=== PATIENT | male | born 1965 | race African-American/Black ===

== ENCOUNTER 2017-03-20 13:39 | Emergency (ER) | payer MEDICARE, MEDICAID ==
[~2017-03-20] VITALS: Ht 170.2 cm; Wt 90.7 kg
[~2017-03-20 13:39] MED LIST: CEPHALEXIN500 MG ORAL; IBUPROFEN800 MG ORAL; UNOBMED
[2017-03-20] MEDS ORDERED: IBUPROFEN600 MG ORAL ×3 (13:54→15:11)
[2017-03-20] MEDS ORDERED: ASPIR 8181 MG ORAL (13:54)
[2017-03-20] MEDS ORDERED: LISINOPRIL40 MG ORAL (13:54)
[2017-03-20] MEDS ORDERED: TUMS200 M1 PO (13:54)
[2017-03-20] MEDS ORDERED: AMLODIPINE BESY10 MG ORAL (13:54)
[2017-03-20] MEDS ORDERED: SIMVASTATIN5 MG ORAL (13:54)
[2017-03-20] MEDS ORDERED: COLACE100 MG ORAL (13:54)
[2017-03-20] MEDS ORDERED: PHENERGAN6.25 MG/5 ORAL (13:54)
[2017-03-20] MEDS ORDERED: Norco 5mg/325mg tab ORAL ONE (14:15)
--- NOTE | 2017-03-20 14:24 | Emergency Room Report ---
History of Present Illness General Chief Complaint: Pain Source: Patient (Shelly Melvin) Present Illness HPI 51-year-old male presents emergency department complaining of 10 out of 10 in severity localized pain to the bilateral hips since last night. Patient states pain is exacerbated upon movement or walking. Patient denies trauma or fall denies erythema, swelling, bruising, tenderness. Patient reports his pain as a dull ache and exacerbates to sharp character upon specific movements such as bending his legs. Patient denies weakness in the lower extremities. Denies previous injuries or history of joint pain also in her. Patient denies history of arthritis. Patient states past medical history of hypertension, hyperlipidemia and GERD. Patient denies nausea, vomiting, fevers, chills recent illness, or history of STDs. Denies numbness tingling or loss of sensation or gross motor movements of the extremities, incontinence of bowel or bladder. Denies CP, Palpitations, LOC, AMS, dizziness, Changes in Vision, Sensation, paresthesias, or a sudden severe headache. (Shelly Melvin) Allergies: Coded Allergies: No Known Allergies (Unverified , 03/12/16) Patient History Past Medical History: see triage record Past Surgical History: none Pertinent Family History: none Immunizations: UTD Reviewed Nursing Documentation: PMH: Agreed, PSxH: Agreed (Shelly Melvin) Nursing Documentation-PMH Past Medical History: No History, Except For Hx Hypertension: Yes (Shelly Melvin) Review of Systems All Other Systems: negative except mentioned in HPI (Shelly Melvin) Physical Exam Vital Signs Date Time Temp Pulse Resp B/P Pulse Ox O2 Delivery O2 Flow Rate FiO2 03/20/17 13:44 97.9 95 16 161/97 97 Room Air Sp02 EP Interpretation: reviewed, abnormal - elevated BP General Appearance: alert, GCS 15, non-toxic, mild distress Head: normocephalic, atraumatic Eyes: bilateral eye PERRL, bilateral eye normal inspection ENT: hearing grossly normal, normal pharynx, no angioedema, normal voice Neck: full range of motion, supple/symm/no masses Respiratory: lungs clear, normal breath sounds, speaking full sentences Cardiovascular #1: regular rate, rhythm, no edema, normal capillary refill Musculoskeletal: back normal, normal range of motion - pain with flexion of bilateral hip joints, non-tender, no calf tenderness, other - Pain with FROM, no appreciable TTP, no swelling , no erythema, no LE edema, Neurologic: alert, oriented x3, responsive, motor strength/tone normal, sensory intact, speech normal Psychiatric: judgement/insight normal, memory normal, mood/affect normal Skin: normal color, no rash, warm/dry, well hydrated Lymphatic: no adenopathy (Shelly Melvin) Medical Decision Making PA Attestation Dr. Givens is my supervising Physician whom patient management has been discussed with. (Shelly Melvin) Diagnostic Impression: Primary Impression: Arthritis ER Course 51-year-old male presents emergency department complaining of 10 out of 10 in severity localized pain to the bilateral hips since last night. Patient states pain is exacerbated upon movement or walking. Patient denies trauma or fall denies erythema, swelling, bruising, tenderness. Patient reports his pain as a dull ache and exacerbates to sharp character upon specific movements such as bending his legs. Patient denies weakness in the lower extremities. Denies previous injuries or history of joint pain also in her. Patient denies history of arthritis. Patient states past medical history of hypertension, hyperlipidemia and GERD. Patient denies nausea, vomiting, fevers, chills recent illness, or history of STDs. Ddx considered but are not limited to Fracture, dislocation, contusion, Sprain/ Strain/Spasm, Epidural abscess, Neoplastic mets. Vital signs: are WNL, pt. is afebrile H&PE are most consistent with possible arthritis will do imaging, no suspicion of infection, or soft tissue injury. ORDERS: - X-ray Left Hip 2 views: Arthritic changes noted, no fractures, dislocations or significant soft tissue injury per preliminary read in the ED by Dr. Givens. - X-ray Right Hip 2 views: Arthritic changes noted, no fractures, dislocations or significant soft tissue injury per preliminary read in the ED by Dr. Givens. ED INTERVENTIONS: - [place] PO DISCHARGE: At this time pt. is stable for d/c to home. Will provide printed patient care instructions, and any necessary prescriptions. Care plan and follow up instructions have been discussed with the patient prior to discharge. (Shelly Melvin) ER Course Scribe documentation reviewed by me and is accurate. (Matthew Givens M.D.) Last Vital Signs Date Time Temp Pulse Resp B/P Pulse Ox O2 Delivery O2 Flow Rate FiO2 03/20/17 13:44 97.9 95 16 161/97 97 Room Air (Shelly Melvin) Disposition: HOME, SELF-CARE Condition: Stable Scripts Ibuprofen* (MOTRIN*) 600 Mg Tablet 600 MG ORAL THREE TIMES A DAY, #30 TAB 0 Refills Prov: Shelly Melvin 03/20/17 Patient Instructions: Arthritis Additional Instructions: Take medications as directed. Follow up with PCP in 3-5 days Return sooner to ED if new symptoms occur, or current symptoms become worse. - Please note that this Emergency Department Report was dictated using [email or web address] tester technology software, occasionally this can lead to erroneous entry secondary to interpretation by the dictation equipment. Shelly Melvin Mar 20, 2017 14:24 Matthew Givens M.D. March 22, 2017 22:46
[2017-03-20 15:16] VITALS: BP 155/80
--- NOTE | 2017-03-21 09:25 | Diagnostic Imaging Report ---
Indications: Right hip pain, no trauma Technique: Two views right hip Findings: Comparison: None. No fracture, dislocation, lytic destruction, periosteal reaction, surrounding soft tissue swelling, or other acute changes are demonstrated. Bone spurs emanate from the left anterior superior iliac spine and ischial tuberosity. No additional Deformity, alignment abnormality, arthritic change, soft tissue calcification, or other chronic changes are demonstrated. IMPRESSION: Multifocal enthesophytes Otherwise negative right hip series
--- NOTE | 2017-03-22 10:33 | Diagnostic Imaging Report ---
Indications: Left hip pain, no trauma Technique: Two views left hip Findings: Comparison: None. No fracture, dislocation, lytic destruction, periosteal reaction, surrounding soft tissue swelling, or other acute changes are demonstrated. Bone spurs emanate from the left anterior superior iliac spine and ischial tuberosities. No additional Deformity, alignment abnormality, arthritic change, soft tissue calcification, or other chronic changes are demonstrated. IMPRESSION: Multifocal enthesophytes Otherwise negative left hip series
== END 2017-03-20 15:19 | disposition home or self-care (01) ==
LOC: EMR 14:20
DX: M16.0 Bilateral primary osteoarthritis of hip (principal); I10 Essential (primary) hypertension
CPT/HCPCS: 73502; 99283

== ENCOUNTER 2017-08-11 08:31 | Emergency (ER) | payer MEDICARE, MEDICAID ==
[~2017-08-11] VITALS: Ht 195.6 cm; Wt 104.3 kg
[~2017-08-11 08:31] MED LIST changes: +AMLODIPINE BESY10 MG ORAL; +ASPIR 8181 MG ORAL; +COLACE100 MG ORAL; +IBUPROFEN600 MG ORAL; +LISINOPRIL40 MG ORAL; +PHENERGAN6.25 MG/5 ORAL; +SIMVASTATIN5 MG ORAL; +TUMS200 M1 PO
[2017-08-11] MEDS ORDERED: ZOCOR5 MG ORAL (08:46)
[2017-08-11] MEDS ORDERED: Ketorolac 60mg Inj IM ONE (09:00)
--- NOTE | 2017-08-11 09:00 | Emergency Room Report ---
History of Present Illness General Chief Complaint: Lower Extremity Injury Source: Patient, Family Member Present Illness HPI Patient is a 52-year-old male presented after increased right lower extremity pain. Patient reported having increased pain to the dorsum of his right foot. Patient noticed increased swelling. Patient stated that he didn't take his medications this morning. Prior history of high blood pressure. He denied any chest pain or shortness of breath. He reported having increased swelling to his foot. He denies any calf pain or tenderness.Patient has prior history of diabetes. Allergies: Coded Allergies: No Known Allergies (Unverified , 03/12/16) Patient History Past Medical History: see triage record Reviewed Nursing Documentation: PMH: Agreed, PSxH: Agreed Nursing Documentation-PMH Hx Hypertension: Yes Review of Systems All Other Systems: negative except mentioned in HPI Physical Exam Vital Signs Date Time Temp Pulse Resp B/P (MAP) Pulse Ox O2 Delivery O2 Flow Rate FiO2 08/11/17 08:38 97.3 77 18 175/120 98 Room Air General Appearance: well appearing, no apparent distress, alert, GCS 15 Head: normocephalic, atraumatic ENT: hearing grossly normal, normal voice Neck: full range of motion, supple Respiratory: no respiratory distress, speaking full sentences Cardiovascular #1: normal inspection, no edema Gastrointestinal: normal inspection, soft Musculoskeletal: normal inspection, back normal, digits/nails normal, no calf tenderness, swelling - minimal swelling no erythema, no skin ulcers to foot Neurologic: normal inspection, alert, oriented x3, 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 Differential diagnosis included but was not limited to fracture, contusion, vascular insufficiency, aortic aneurysm, cellulitis. Patient's benign exam and does not appear to require any laboratory testing at this time. X-ray imaging previously foot read by radiology showed Findings: There is mild hallux valgus and metatarsus adductus. No acute fractures. No dislocations. The joint spaces are preserved. The patient appears to have exacerbation of arthritis. He is advised to followup with his primary care physician and podiatry for examination. The patient is advised to follow up with primary care doctor in 1-2 days. Patient is advised to return if any worsening condition or if any changes in status that are concerning. Last Vital Signs Date Time Temp Pulse Resp B/P (MAP) Pulse Ox O2 Delivery O2 Flow Rate FiO2 08/11/17 08:38 97.3 77 18 175/120 98 Room Air Status: improved Disposition: HOME, SELF-CARE Condition: Stable Scripts Ibuprofen* (MOTRIN*) 600 Mg Tablet 600 MG ORAL Q8H Y for For Pain, #30 TAB 0 Refills Prov: Lobo Mcgee 08/11/17 Lobo Mcgee Aug 11, 2017 09:00
[2017-08-11] MEDS ORDERED: IBUPROFEN600 MG ORAL (09:34)
--- NOTE | 2017-08-11 10:03 | Diagnostic Imaging Report ---
Indication: PAIN Technique: 3 views right foot Comparison: none Findings: There is mild hallux valgus and metatarsus adductus. No acute fractures. No dislocations. The joint spaces are preserved. Impression: Negative
[2017-08-11 10:16] VITALS: BP 153/79
== END 2017-08-11 10:17 | disposition home or self-care (01) ==
LOC: EMR 09:16
DX: M19.071 Primary osteoarthritis, right ankle and foot (principal); M79.604 Pain in right leg; I10 Essential (primary) hypertension
CPT/HCPCS: 82962; 96372; 99284

== ENCOUNTER 2017-12-10 12:12 | Emergency (ER) | payer MEDICARE, MEDICAID ==
[~2017-12-10] VITALS: Ht 172.7 cm; Wt 81.6 kg
[~2017-12-10 12:12] MED LIST changes: +ZOCOR5 MG ORAL
--- NOTE | 2017-12-10 12:26 | Emergency Room Report ---
History of Present Illness General Chief Complaint: To Be Triaged Present Illness HPI 52-year-old male with one day of right foot pain Denies any trauma or falls or twisted ankle States he was told by a nurse previously that he has gout Not currently on any pain medication or treatment for gout states pain is "all over my foot." denies any history of gout to be told x-ray jul 2017: yhere is mild hallux valgus and metatarsus adductus. on xray Allergies: Coded Allergies: No Known Allergies (Unverified , 03/12/16) Patient History Past Medical History: none Past Surgical History: none Pertinent Family History: none Social History: Denies: smoking, alcohol use, drug use Immunizations: UTD Reviewed Nursing Documentation: PMH: Agreed, PSxH: Agreed Nursing Documentation-PMH Hx Hypertension: Yes Review of Systems All Other Systems: negative except mentioned in HPI Physical Exam Sp02 EP Interpretation: reviewed, normal General Appearance: normal inspection, well appearing, no apparent distress, alert, GCS 15, non-toxic Head: normocephalic, atraumatic Eyes: bilateral eye PERRL, bilateral eye EOMI ENT: normal ENT inspection, hearing grossly normal, normal pharynx, no angioedema, normal voice, TMs + canals normal, uvula midline, moist mucus membranes Neck: normal inspection, full range of motion, supple, thyroid normal, no meningismus, no bony tend Respiratory: normal inspection, lungs clear, normal breath sounds, no rhonchi, no respiratory distress, no retraction, no accessory muscle use, no wheezing, speaking full sentences Cardiovascular #1: regular rate, rhythm, no edema, no JVD, normal capillary refill Gastrointestinal: normal inspection, normal bowel sounds, non tender, soft, no mass, no peritonitis, non-distended, no guarding, no hernia, no pulsatile mass Genitourinary: no CVA tenderness Musculoskeletal: normal inspection, back normal, normal range of motion, no calf tenderness, pelvis stable, Franchesca's Sign negative, other - No obvious trauma , no redness or swelling of the foot or joints or toes. Mild tenderness throughout foot. Neurologic: normal inspection, alert, oriented x3, responsive, animal shelter worker III-XII nml as tested, motor strength/tone normal, cerebellar normal, normal gait, speech normal Psychiatric: normal inspection, judgement/insight normal, mood/affect normal, no suicidal/homicidal ideation, no delusions Skin: normal inspection, normal color, no rash Lymphatic: normal inspection, no adenopathy Medical Decision Making ER Course Right foot pain for one day Atraumatic No sign of gout No sign of cellulitis or infection Possibly arthritis related to previously seen abnormalities on x-ray Is given Motrin and Rx for same ER course: Patient has remained stable during ED stay. Disposition: Patient is to be discharged to home. Prescriptions given are motrin Patient is instructed to follow up with their primary care doctor within 5 days. Strict return precautions discussed with patient such as fever, chills, worsening/severe pain, nausea, vomiting, which may indicate severe illness. Patient verbalizes understanding and agrees with plan. Please note that this Emergency Department Report was dictated using [employer] technology software, occasionally this can lead to erroneous entry secondary to interpretation by the dictation equipment Status: improved Disposition: HOME, SELF-CARE Scripts Ibuprofen* (MOTRIN*) 600 Mg Tablet 600 MG ORAL Q8H Y for For Pain, #30 TAB 0 Refills Prov: DARIAN TADEO M.D. 12/10/17 ADRIAN TADEO M.D. Dec 10, 2017 12:26
[2017-12-10] MEDS ORDERED: IBUPROFEN600 MG ORAL (12:41)
[2017-12-10 12:59] VITALS: BP 185/94
== END 2017-12-10 13:15 | disposition home or self-care (01) ==
LOC: EMR 12:50
DX: M79.671 Pain in right foot (principal); I10 Essential (primary) hypertension
CPT/HCPCS: 99283